=== PATIENT | female | born 1975 | race Caucasian/White ===

== ENCOUNTER 2017-06-07 16:46 | Emergency (ER) | payer MEDICAID ==
[~2017-06-07] VITALS: Ht 165.1 cm; Wt 82.5 kg
[2017-06-07] MEDS ORDERED: KETOROLAC 30 MG/1 ML IVPush ONE (17:30)
[2017-06-07] MEDS ORDERED: PROCHLORPERAZINE 5 MG/ML, 2ML IVPush ONE (17:30)
[2017-06-07] MEDS ORDERED: SODIUM CHLORIDE FLUSH 10ML SYR IVF ONE (17:30)
[2017-06-07] MEDS ORDERED: SODIUM CHLORIDE 0.9% 1,000ML IVBOLUS ONE (17:30)
[2017-06-07] MEDS ORDERED: DIPHENHYDRAMINE 50 MG/ML, 1ML IVPush ONE (17:30)
[2017-06-07] MEDS ORDERED: KETOROLAC 30 MG/1 ML ONE (19:20)
[2017-06-07] MEDS ORDERED: DIPHENHYDRAMINE 50 MG/ML, 1ML ONE (19:20)
[2017-06-07] MEDS ORDERED: PROCHLORPERAZINE 5 MG/ML, 2ML ONE (19:20)
[2017-06-07] MEDS ORDERED: SUMA25TA3 PO (19:46)
[2017-06-07] MEDS ORDERED: NAPR500T3 PO (19:46)
[2017-06-07] MEDS ORDERED: OXYC20TA2 PO (19:46)
[2017-06-07 20:41] VITALS: BP 98/76
== END 2017-06-07 21:29 | disposition home or self-care (01) ==
LOC: ED 21:00
DX: G43.009 Migraine without aura, not intractable, without status migrainosus (principal); H53.149 Visual discomfort, unspecified; R11.0 Nausea
CPT/HCPCS: 96374; 96375; 99284; J0780; J1200; J1885; J7030